=== PATIENT | female | born 1965 | race Hispanic/Latino ===

== ENCOUNTER 2020-09-04 16:03 | Inpatient (IN) | payer OTHER, SELFPAY ==
[~2020-09-04 16:03] MED LIST: Iopamidol-370 76% 500 ML 1 ML ONE
[2020-09-04 16:52] LABS: #Lymphocytes 0.5 thou/uL (1.20-3.40); #Monocytes 0.6 thou/uL (0.11-0.59); #Neutrophils 9.8 thou/uL (1.40-6.50); %Basophils 0.4 % (0.0-1.0); %Eosinophils 0.1 % (0.0-10.0); %Lymphocytes 4.3 % (21.0-51.0); %Monocytes 5.3 % (0.0-10.0); %Neutrophils 89.9 % (42.0-75.0); Mean Corpuscular HGB CONC 33.8 g/dL (32.0-36.0); Mean Corpuscular Hemoglobin 29.2 pg (27.0-31.0); Mean Corpuscular Volume 86.3 fL (78.0-98.0); Mean Platelet Volume 8.4 fL (7.4-10.4); Platelet Count 315 thou/uL (130-400); RBC Distribution Width 13.1 % (11.5-14.5); Red Blood Cell (RBC) Count 4.46 mill/uL (4.20-5.40); White Blood Cell (WBC) Count 10.9 thou/uL (4.8-10.8)
[2020-09-04 16:59] LABS: PTT 30.9 sec (22.9-36.1); Prothrombin Time 12.9 sec (12.0-14.7)
--- NOTE | 2020-09-04 17:04 | CT ---
CT ANGIO OF CHEST PERFORMED WITH INTRAVENOUS CONTRAST ENHANCEMENT WITH 3D RECONSTRUCTIONS: 09/04/20 HISTORY: Shortness of breath. COVID positive. Diffuse bilateral multifocal infiltrates compatible with COVID pneumonia. No pleural effusions. Thoracic aorta is normal in caliber. Motion artifact degrades detail particularly in the lower lobes for evaluation of pulmonary embolus. I see no central pulmonary embolus. The visualized liver parenchyma shows no focal abnormalities. Fatty change of the liver is present. IMPRESSION: 1. Multifocal pneumonia most compatible with COVID. 2. No signs of central pulmonary embolus. POS: JASPAL
--- NOTE | 2020-09-04 17:09 | RAD ---
PORTABLE CHEST: 09/04/20 HISTORY: Shortness of breath. Heart size is slightly enlarged. Diffuse bilateral lung infiltrates are compatible with the history o f COVID positive test. IMPRESSION: Diffuse bilateral infiltrates consistent with COVID pneumonia. POS: JASPAL
[2020-09-04 17:19] LABS: ALT (SGPT) 32 U/L (8-55); AST (SGOT) 33 U/L (5-34); Albumin 3.8 g/dL (3.5-5.0); Alkaline Phosphatase 94 U/L (40-110); Anion Gap 19 mmol/L (10-20); BUN (Urea Nitrogen) 15 mg/dL (9.8-20.1); Bilirubin, Total 0.5 mg/dL (0.2-1.2); Calc. Creatinine Clearance 0 mL/min (70-130); Calcium 9.1 mg/dL (7.8-10.44); Carbon Dioxide 22 mmol/L (22-29); Chloride 94 mmol/L (98-107); Globulin 3.8 g/dL (2.4-3.5); Glucose 305 mg/dL (70-105); Lipase 53 U/L (8-78); Potassium 3.3 mmol/L (3.5-5.1); Protein, Total 7.6 g/dL (6.0-8.3); Sodium 132 mmol/L (136-145)
[2020-09-04] MEDS ORDERED: Potassium Chloride 20 MEQ TAB ONE (17:46)
[2020-09-04] MEDS ORDERED: cefTRIAXone\\ROCEPHIN 1 GM VIAL ONE (18:21)
--- NOTE | 2020-09-04 18:26 | PDOC.HHP ---
Hospitalist HPI - History of Present Illness SOB History of Present Illness: Ms. Min Jean is a 55-year-old female with past medical history of hypertension, type 2 diabetes mellitus who presents to the emergency room for worsening shortness of breath. Patient reports that she tested positive for Covid day prior to admission and that her symptoms began a few days ago with cough, subjective fevers and chills. Patient endorses myalgias, malaise and worsening shortness of breath initially on exertion and now at rest. She denies any history of respiratory problems, denies chest pain, palpitations. She denies nausea vomiting diarrhea. Emergency room initial vital signs 126/63, 125, 20, 99.3, 92% on 3 L nasal cannula. Chest x-ray showed diffuse bilateral infiltrates consistent with Covid pneumonia. CTA PE protocol was negative for PE, but did show significant parenchymal changes consistent with Covid pneumonia. Lactic acid 4.3. CRP 11.79. White blood cell count 10.9. H/H 13.0/38.5. BUNs/CR 15/1.03. Sodium 132, potassium 3.3, glucose 305. Patient received azithromycin, ceftriaxone, dexamethasone, potassium and 1 L of normal saline in emergency room. Hospitalist ROS - Review of Systems Constitutional: reports: fever, chills, sweats, weakness, malaise Eyes: denies: pain, vision change, conjunctivae inflammation, eyelid inflammation, redness, other ENT: denies: ear pain, ear discharge, nose pain, nose discharge, nose congestion, mouth pain, mouth swelling, throat pain, throat swelling, other Respiratory: reports: cough, dry, shortness of breath, SOB with excertion. denies: hemoptysis, pleuritic pain, sputum, wheezing, other Cardiovascular: denies: chest pain, palpitations, orthopnea, paroxysmal noc. dyspnea, edema, light headedness, other Gastrointestinal: denies: nausea, vomiting, abdominal pain, diarrhea, constipation, melena, hematochezia, other Genitourinary: denies: dysuria, frequency, incontinence, hematuria, retention, other Musculoskeletal: denies: neck pain, shoulder pain, arm pain, back pain, hand pain, leg pain, foot pain, other Skin: denies: rash, lesions, geovanna, bruising, other Neurological: denies: weakness, numbness, incoordination, change in speech, confusion, seizures, other - Medication Medications: No medications include Metoprolol Telmisartan hydrochlorothiazide No known drug allergies Hospitalist History - Past Medical History Other Medical History: Past medical history includes Hypertension Type 2 diabetes mellitus, diet controlled - Past Surgical History Other Surgical History: Past surgical history includes in 2002 - Family History Other Family History: No pertinent family history - Social History Smoking Status: Never smoker Alcohol: reports: None Drugs: reports: none Living Situation: With Family Activity level: independent ambulation - Exam General Appearance: NAD, awake alert General - other findings: Comfortable on 3 L nasal cannula Eye: PERRL, anicteric sclera ENT: normocephalic atraumatic, no oropharyngeal lesions, moist mucosa Neck: supple, symmetric, no JVD, no thyromegaly, no lymphadenopathy, no carotid bruit Heart: RRR, no murmur, no gallops, no rubs, normal peripheral pulses Respiratory: no tachypnea Respiratory - other findings: Rales throughout Gastrointestinal: soft, non-tender, non-distended, normal bowel sounds, no palp able masses, no hepatomegaly, no splenomegaly, no bruit Extremities: no cyanosis, no clubbing, no edema Skin: normal turgor, no lesions, no rashes Neurological: cranial nerve grossly intact, normal sensation to touch, no weak ness, no focal deficits, no new deficit Musculoskeletal: normal tone, normal strength, no muscle wasting Psychiatric: normal affect, normal behavior, A&O x 3 Hospitalist Results - Labs Result Diagrams: 09/08/20 06:15 09/08/20 06:15 Lab results: WBC 10.9 thou/uL (4.8-10.8) H 09/04/20 16:42 Hgb 13.0 g/dL (12.0-16.0) 09/04/20 16:42 Hct 38.5 % (36.0-47.0) 09/04/20 16:42 MCV 86.3 fL (78.0-98.0) 09/04/20 16:42 Plt Count 315 thou/uL (130-400) 09/04/20 16:42 Neutrophils % 89.9 % (42.0-75.0) H 09/04/20 16:42 ESR Westergren 127 mm/hr (Less than 30) H 09/04/20 16:42 Sodium 132 mmol/L (136-145) L 09/04/20 16:42 Potassium 3.3 mmol/L (3.5-5.1) L 09/04/20 16:42 Chloride 94 mmol/L (98-107) L 09/04/20 16:42 Carbon Dioxide 22 mmol/L (22-29) 09/04/20 16:42 BUN 15 mg/dL (9.8-20.1) 09/04/20 16:42 Creatinine 1.03 mg/dL (0.6-1.1) 09/04/20 16:42 Glucose 305 mg/dL (70-105) H 09/04/20 16:42 Lactic Acid 4.3 mmol/L (0.5-2.2) H* 09/04/20 16:42 Calcium 9.1 mg/dL (7.8-10.44) 09/04/20 16:42 Total Bilirubin 0.5 mg/dL (0.2-1.2) 09/04/20 16:42 AST 33 U/L (5-34) 09/04/20 16:42 ALT 32 U/L (8-55) 09/04/20 16:42 Alkaline Phosphatase 94 U/L (40-110) 09/04/20 16:42 C-Reactive Protein 11.79 mg/dL (= or < 0.5) H 09/04/20 16:42 B-Natriuretic Peptide 18.9 pg/mL (0-100) 09/04/20 16:42 Serum Total Protein 7.6 g/dL (6.0-8.3) 09/04/20 16:42 Albumin 3.8 g/dL (3.5-5.0) 09/04/20 16:42 Lipase 53 U/L (8-78) 09/04/20 16:42 Hospitalist H&P A/P - Plan Plan: COVID-19 pneumonia 55-year-old female with past medical history of hypertension, diet-controlled type 2 diabetes mellitus presents with shortness of breath and tachycardia found to have COVID-19 pneumonia. CTA PE protocol negative. White blood cell count 10.9. Patient requiring 3 L nasal cannula to maintain O2 sat. Patient received azithromycin, ceftriaxone, dexamethasone in emergency room. We will closely monitor patient's respiratory status as patient has moderate to severe COVID-19 pneumonia. We will obtain baseline inflammatory markers and see if patient is candidate for remdesivir. Plan -Decadron, will see patient is candidate for remdesivir -Ceftriaxone, azithromycin -Supplemental oxygen -Tylenol, Robitussin -Vitamin C, zinc -We will obtain baseline inflammatory markers Acute hypoxic respiratory failure Patient with acute hypoxic respiratory failure secondary to moderate to severe COVID-19 pneumonia. Patient with new oxygen requirement now on 3 L of oxygen nasal cannula to maintain O2 sat. We will continue supplemental oxygen and closely monitor respiratory status. Treatment as above. Plan -Supplemental oxygen -Treatment as above -Closely monitor respiratory status Sepsis due to viral etiology Patient with elevated lactic acid of 4.3, tachypneic, tachycardic to 120s secondary to COVID-19 pneumonia. White blood cell count 10.9. Patient received 1 L of normal saline in emergency room as well as ceftriaxone and azithromycin. We will continue plan as above and continue to trend lactic acid, white blood cell count, fever curve. Plan Follow blood cultures Continue ceftriaxone, azithromycin Gentle IV fluids Trend lactic acid, WBC, fever curve Hypertension History of hypertension on metoprolol and combo losartan hydrochlorothiazide. Will hold in setting of sepsis and continue as needed. Type 2 diabetes mellitus Patient with history of type 2 diabetes mellitus, however she reports she is not taking any medication for this. Glucose on BMP significantly elevated to 305. Will check hemoglobin A1c and place patient on insulin sliding scale for now. DVT prophylaxisLovenox Full code Case discussed with attending physician, Dr. Marshall.
[2020-09-04] MEDS ORDERED: Acetaminophen 650 MG Suppository PR PRN (18:32)
[2020-09-04] MEDS ORDERED: Ondansetron ODT 4 MG TAB PO PRN (18:32)
[2020-09-04] MEDS ORDERED: Ondansetron PF 4 MG/2 ML Vial IVP PRN (18:32)
[2020-09-04] MEDS ORDERED: Dextrose 5% in Water 1,000 ML IV PRN (18:35)
[2020-09-04] MEDS ORDERED: Dextrose 50% Abboject 50 ML SYRINGE SLOW IVP PRN (18:35)
[2020-09-04 19:06] LABS: Hemoglobin A1c 6.5 % (4.0-6.0)
[2020-09-04 19:22] LABS: SARS-CoV-2 NAA Rapid Test DETECTED (NotDetected)
[2020-09-04 20:16] LABS: Lactic Acid 3.3 mmol/L (0.5-2.2)
[2020-09-04] MEDS ORDERED: REMDESIVIR (EUA) 200 MG in Sodium Chloride 0.9% 250 ML 210 ML IV SCH (22:00)
[2020-09-04 22:45] VITALS: BMI 46.5
[2020-09-05] MEDS: Guaifenesin DM 100-10/5 ML UDCUP PO PRN ×2 (01:45→20:00)
[2020-09-05 06:31] LABS: Lactic Acid 2.4 mmol/L (0.5-2.2)
[2020-09-05 06:32] LABS: Band 15 % (5-11); Eosinophils 1 % (0-10); Hemoglobin 11.4 g/dL (12.0-16.0); Lymphocytes 7 % (21-51); MDiff Complete? YES; Mean Corpuscular HGB CONC 32.2 g/dL (32.0-36.0); Mean Corpuscular Hemoglobin 27.6 pg (27.0-31.0); Mean Corpuscular Volume 85.8 fL (78.0-98.0); Mean Platelet Volume 7.9 fL (7.4-10.4); Monocytes 6 % (0-10); Neutrophil 71 % (42-75); Platelet Count 337 thou/uL (130-400); Platelet Morphology Comment Appears Adequate; RBC Distribution Width 13.3 % (11.5-14.5); Red Blood Cell (RBC) Count 4.11 mill/uL (4.20-5.40); White Blood Cell (WBC) Count 12.7 thou/uL (4.8-10.8)
[2020-09-05 06:35] LABS: Anion Gap 15 mmol/L (10-20); BUN (Urea Nitrogen) 12 mg/dL (9.8-20.1); Calc. Creatinine Clearance 175 mL/min (70-130); Calcium 8.1 mg/dL (7.8-10.44); Carbon Dioxide 21 mmol/L (22-29); Chloride 105 mmol/L (98-107); Glucose 194 mg/dL (70-105); Potassium 4.2 mmol/L (3.5-5.1); Sodium 137 mmol/L (136-145)
[2020-09-05 06:37] LABS: AST (SGOT) 25 U/L (5-34)
[2020-09-05 06:38] LABS: ALT (SGPT) 25 U/L (8-55)
[2020-09-05] MEDS: Dexamethasone 4 MG TAB PO SCH (07:53)
[2020-09-05] MEDS: Ascorbic Acid 500 mg Chewable Tablet PO SCH (07:55)
[2020-09-05] MEDS: Zinc Sulfate 220 MG CAP PO SCH (07:55)
[2020-09-05] MEDS: Enoxaparin Sodium 40 MG/0.4 ML SYRINGE SC SCH (07:56)
[2020-09-05] MEDS: HumaLOG 300 UNITS/3 ML VIAL SC PRN (13:05)
[2020-09-05] MEDS: Acetaminophen 325 MG TAB PO PRN (13:06)
--- NOTE | 2020-09-05 15:34 | PDOC.HOSPP ---
- Subjective Encounter Date: 09/05/20 Encounter Time: 15:25 Subjective: f/u for COVID PNA/hypoxic resp failure receiving Remdesivir/Dexamethasone/Rocephin/Zithromax/O2 @ 3L/min NC. - Objective Vital Signs & Weight: Vital Signs (12 hours) Temp Pulse Resp BP Pulse Ox 09/05/20 12:29 99.3 F 83 20 114/76 96 09/05/20 08:00 98.6 F 92 19 100/52 L 95 09/05/20 07:00 98.6 F 92 18 100/52 L 94 L 09/05/20 05:24 98.5 F 107 H 20 107/67 94 L Weight Weight 262 lb 9.129 oz Result Diagrams: 09/05/20 06:03 09/05/20 06:03 Additional Labs: Accuchecks 09/05/20 09/05/20 09/04/20 11:36 06:24 22:30 POC Glucose 215 H 186 H 205 H Microbiology 09/04/20 16:42 Venous blood - Right Arm Blood Culture - Preliminary Specimen has been received and culture in progress. No Growth to date. 09/04/20 16:42 Venous blood - Left Hand Blood Culture - Preliminary Specimen has been received and culture in progress. No Growth to date. Laboratory Tests 09/04/20 09/04/20 09/04/20 16:42 16:42 16:42 WBC Neutrophils % Neutrophils % (Manual) Band Neuts % (Manual) D-Dimer Hemoglobin A1c Lactic Acid 4.3 H* Ferritin C-Reactive Protein 11.79 H B-Natriuretic Peptide 18.9 Influenza A RNA INAAT Influenza B RNA INAAT SARS-CoV-2 Rap RNA(RT-PCR) 09/04/20 09/04/20 09/04/20 16:42 16:42 16:42 WBC 10.9 H Neutrophils % 89.9 H Neutrophils % (Manual) Band Neuts % (Manual) D-Dimer 0.43 Hemoglobin A1c Lactic Acid Ferritin 450.02 H C-Reactive Protein B-Natriuretic Peptide Influenza A RNA INAAT Influenza B RNA INAAT SARS-CoV-2 Rap RNA(RT-PCR) 09/04/20 09/04/20 09/04/20 16:42 17:57 19:50 WBC Neutrophils % Neutrophils % (Manual) Band Neuts % (Manual) D-Dimer Hemoglobin A1c 6.5 H Lactic Acid 3.3 H Ferritin C-Reactive Protein B-Natriuretic Peptide Influenza A RNA INAAT Not Detected Influenza B RNA INAAT Not Detected SARS-CoV-2 Rap RNA(RT-PCR) DETECTED A* 09/05/20 09/05/20 06:03 06:03 WBC Neutrophils % Neutrophils % (Manual) 71 Band Neuts % (Manual) 15 H D-Dimer Hemoglobin A1c Lactic Acid 2.4 H Ferritin C-Reactive Protein B-Natriuretic Peptide Influenza A RNA INAAT Influenza B RNA INAAT SARS-CoV-2 Rap RNA(RT-PCR) Radiology Reviewed by me: Yes (CTA chest - no PE, bilat infiltrates) Hospitalist ROS - Medication Medications: Active Medications Generic Name Dose Route Start Last Admin Trade Name Freq PRN Reason Stop Dose Admin Acetaminophen 650 mg 09/04/20 18:32 09/05/20 13:06 Acetaminophen 325 Mg Tab PO 650 mg Q4H PRN Administration Headache/Fever/Mild Pain (1-3) Ascorbic Acid 1,000 mg 09/05/20 09:00 09/05/20 07:55 Ascorbic Acid 500 Mg Chewable Tablet PO 1,000 mg DAILY IZA Administration Dexamethasone 6 mg 09/05/20 08:00 09/05/20 07:53 Dexamethasone 4 Mg Tab PO 6 mg QAM-WM IZA Administration Enoxaparin Sodium 40 mg 09/05/20 09:00 09/05/20 07:56 Enoxaparin Sodium 40 Mg/0.4 Ml Syringe SC 40 mg 0900 IZA Administration Guaifenesin/Dextromethorphan 15 ml 09/04/20 18:32 09/05/20 01:45 Guaifenesin Dm 100-10/5 Ml Udcup PO 15 ml Q4H PRN Administration Cough Insulin Human Lispro 0 units 09/04/20 18:35 09/05/20 13:05 Humalog 300 Units/3 Ml Vial SC 3 units .MILD SLIDING SCALE PRN Administration Mild Correctional Scale Zinc Sulfate 220 mg 09/05/20 09:00 09/05/20 07:55 Zinc Sulfate 220 Mg Cap PO 220 mg DAILY IZA Administration - Exam General Appearance: NAD, awake alert Eye: PERRL, anicteric sclera ENT: normocephalic atraumatic, no oropharyngeal lesions Neck: supple, symmetric, no JVD, no thyromegaly, no lymphadenopathy Heart: RRR, no gallops, no rubs, normal peripheral pulses Heart - other findings: S1, S2 Respiratory: rhonchi Respiratory - other findings: diminished in bases, scattered coarse sounds Gastrointestinal: soft, non-tender, non-distended, normal bowel sounds, no palpable masses Gastrointestinal - other findings: obese Extremities: no cyanosis, no clubbing, no edema Skin: normal turgor, no lesions Neurological: cranial nerve grossly intact, no new deficit Musculoskeletal: normal tone, generalized weakness Psychiatric: normal affect, A&O x 3 Hosp A/P (1) Pneumonia due to COVID-19 virus Code(s): U07.1 - COVID-19; J12.82 - PNEUMONIA DUE TO CORONAVIRUS DISEASE 2019 Status: Acute Plan: Continue Remdesivir/Dexamethasone/Rocephin/Zithromax/Vit C/Zinc/Lovenox (2) Acute respiratory failure with hypoxia Code(s): J96.01 - ACUTE RESPIRATORY FAILURE WITH HYPOXIA Status: Acute Plan: Continue O2 supplementation @ 3.5L/min NC (3) Hypokalemia Code(s): E87.6 - HYPOKALEMIA Status: Acute Plan: Resolved (4) Sepsis Code(s): A41.9 - SEPSIS, UNSPECIFIED ORGANISM Status: Acute Plan: Secondary to COVID PNA, continue mgmt as outlined in #1 (5) DM II (diabetes mellitus, type II), controlled Code(s): E11.9 - TYPE 2 DIABETES MELLITUS WITHOUT COMPLICATIONS Status: Chronic Plan: ISS, serial accuchecks, ADA, confirm home medication regimen - Plan plan discussed w/ family, continue antibiotics, hospital social worker, respiratory therapy, out of bed/ambulate, DVT proph w/SCDs Stable currently Continue Remdesivir protocol Continue Dexamethasone/Rocephin/Zithromax Continue Lovenox Assess for home O2 Isolation protocol AM lab: Ferritin, CRP, LFT's
[2020-09-05] MEDS: Azithromycin 500 MG in Sodium Chloride 0.9% 250 ML 250 ML IVPB SCH (16:16)
[2020-09-05] MEDS: cefTRIAXone\\ROCEPHIN 1 GM in Sodium Chloride 0.9% 100 ML IVPB SCH (18:35)
[2020-09-05] MEDS: REMDESIVIR (EUA) 100 MG in Sodium Chloride 0.9% 250 ML 230 ML IV SCH (20:46)
[2020-09-06] MEDS: Guaifenesin DM 100-10/5 ML UDCUP PO PRN ×2 (06:07→21:32)
[2020-09-06 06:31] LABS: Anion Gap 15 mmol/L (10-20); BUN (Urea Nitrogen) 18 mg/dL (9.8-20.1); Calc. Creatinine Clearance 168 mL/min (70-130); Calcium 8.3 mg/dL (7.8-10.44); Carbon Dioxide 24 mmol/L (22-29); Chloride 104 mmol/L (98-107); Glucose 160 mg/dL (70-105); Potassium 4.3 mmol/L (3.5-5.1); Sodium 139 mmol/L (136-145)
[2020-09-06 06:32] LABS: ALT (SGPT) 22 U/L (8-55); AST (SGOT) 23 U/L (5-34)
[2020-09-06 06:41] LABS: Band 4 % (5-11); Hemoglobin 11.9 g/dL (12.0-16.0); Lymphocytes 4 % (21-51); MDiff Complete? YES; Mean Corpuscular HGB CONC 30.8 g/dL (32.0-36.0); Mean Corpuscular Hemoglobin 26.6 pg (27.0-31.0); Mean Corpuscular Volume 86.3 fL (78.0-98.0); Mean Platelet Volume 7.7 fL (7.4-10.4); Monocytes 10 % (0-10); Neutrophil 82 % (42-75); Platelet Count 415 thou/uL (130-400); Platelet Morphology Comment Appears Increased; RBC Distribution Width 13.3 % (11.5-14.5); RBC Morphology Normal; Red Blood Cell (RBC) Count 4.48 mill/uL (4.20-5.40); White Blood Cell (WBC) Count 11.6 thou/uL (4.8-10.8)
[2020-09-06] MEDS: Dexamethasone 4 MG TAB PO SCH (08:26)
[2020-09-06] MEDS: Ascorbic Acid 500 mg Chewable Tablet PO SCH (08:26)
[2020-09-06] MEDS: Zinc Sulfate 220 MG CAP PO SCH (08:26)
[2020-09-06] MEDS: Enoxaparin Sodium 40 MG/0.4 ML SYRINGE SC SCH ×2 (08:27→21:30)
[2020-09-06] MEDS: Acetaminophen 325 MG TAB PO PRN ×2 (08:27→21:31)
[2020-09-06] MEDS ORDERED: PROVENTIL INHALER 6.7 G (200 INHALATIONS) INH PRN (14:45)
--- NOTE | 2020-09-06 14:46 | PDOC.HOSPP ---
- Subjective Encounter Date: 09/06/20 Encounter Time: 14:40 Subjective: f/u for COVID PNA/hypoxic resp failure currently on O2 @ 6L/min NC. Receiving Remdesivir/Dexamethasone/Rocephin/Zithromax/Lovenox/Vit C/Zinc. Nursing reports increased respiratory effort today. - Objective Vital Signs & Weight: Vital Signs (12 hours) Temp Pulse Resp BP BP Pulse Ox 09/06/20 13:05 98.8 F 79 23 H 102/66 93 L 09/06/20 08:00 98.4 F 78 26 H 105/71 95 09/06/20 06:37 94 L 09/06/20 04:42 97.9 F 71 20 102/66 95 Weight Weight 262 lb 9.129 oz Result Diagrams: 09/06/20 05:57 09/06/20 05:57 Additional Labs: Accuchecks 09/06/20 09/06/20 09/05/20 11:42 04:08 19:28 POC Glucose 184 H 149 H 236 H 09/05/20 09/05/20 17:11 15:28 POC Glucose 168 H 184 H Microbiology 09/04/20 16:42 Venous blood - Right Arm Blood Culture - Preliminary Specimen has been received and culture in progress. No Growth to date. 09/04/20 16:42 Venous blood - Right Arm Blood Culture - Preliminary NO GROWTH AT 48 HOURS 09/04/20 16:42 Venous blood - Left Hand Blood Culture - Preliminary Specimen has been received and culture in progress. No Growth to date. 09/04/20 16:42 Venous blood - Left Hand Blood Culture - Preliminary NO GROWTH AT 48 HOURS Laboratory Tests 09/04/20 09/04/20 09/04/20 16:42 16:42 16:42 WBC Neutrophils % Neutrophils % (Manual) Band Neuts % (Manual) D-Dimer Hemoglobin A1c Lactic Acid 4.3 H* Ferritin C-Reactive Protein 11.79 H B-Natriuretic Peptide 18.9 Influenza A RNA INAAT Influenza B RNA INAAT SARS-CoV-2 Rap RNA(RT-PCR) 09/04/20 09/04/20 09/04/20 16:42 16:42 16:42 WBC 10.9 H Neutrophils % 89.9 H Neutrophils % (Manual) Band Neuts % (Manual) D-Dimer 0.43 Hemoglobin A1c Lactic Acid Ferritin 450.02 H C-Reactive Protein B-Natriuretic Peptide Influenza A RNA INAAT Influenza B RNA INAAT SARS-CoV-2 Rap RNA(RT-PCR) 09/04/20 09/04/20 09/04/20 16:42 17:57 19:50 WBC Neutrophils % Neutrophils % (Manual) Band Neuts % (Manual) D-Dimer Hemoglobin A1c 6.5 H Lactic Acid 3.3 H Ferritin C-Reactive Protein B-Natriuretic Peptide Influenza A RNA INAAT Not Detected Influenza B RNA INAAT Not Detected SARS-CoV-2 Rap RNA(RT-PCR) DETECTED A* 09/05/20 09/05/20 09/06/20 06:03 06:03 05:57 WBC Neutrophils % Neutrophils % (Manual) 71 Band Neuts % (Manual) 15 H D-Dimer Hemoglobin A1c Lactic Acid 2.4 H Ferritin 297.52 H C-Reactive Protein B-Natriuretic Peptide Influenza A RNA INAAT Influenza B RNA INAAT SARS-CoV-2 Rap RNA(RT-PCR) 09/06/20 05:57 WBC Neutrophils % Neutrophils % (Manual) Band Neuts % (Manual) D-Dimer Hemoglobin A1c Lactic Acid Ferritin C-Reactive Protein 6.56 H B-Natriuretic Peptide Influenza A RNA INAAT Influenza B RNA INAAT SARS-CoV-2 Rap RNA(RT-PCR) Hospitalist ROS - Medication Medications: Active Medications Generic Name Dose Route Start Last Admin Trade Name Freq PRN Reason Stop Dose Admin Acetaminophen 650 mg 09/04/20 18:32 09/06/20 08:27 Acetaminophen 325 Mg Tab PO 650 mg Q4H PRN Administration Headache/Fever/Mild Pain (1-3) Ascorbic Acid 1,000 mg 09/05/20 09:00 09/06/20 08:26 Ascorbic Acid 500 Mg Chewable Tablet PO 1,000 mg DAILY IZA Administration Dexamethasone 6 mg 09/05/20 08:00 09/06/20 08:26 Dexamethasone 4 Mg Tab PO 6 mg QAM-WM IZA Administration Enoxaparin Sodium 40 mg 09/05/20 09:00 09/06/20 08:27 Enoxaparin Sodium 40 Mg/0.4 Ml Syringe SC 40 mg 0900 IZA Administration Guaifenesin/Dextromethorphan 15 ml 09/04/20 18:32 09/06/20 06:07 Guaifenesin Dm 100-10/5 Ml Udcup PO 15 ml Q4H PRN Administration Cough Remdesivir 100 mg/ Sodium 250 mls @ 250 mls/hr 09/05/20 22:00 09/05/20 20:46 Chloride IV 09/08/20 22:59 250 mls Q24HR@2200 IZA Administration Ceftriaxone Sodium 1 gm/ 100 mls @ 200 mls/hr 09/05/20 18:00 09/05/20 18:35 Sodium Chloride IVPB 100 mls Q24HR IZA Administration Azithromycin 500 mg/ Sodium 250 mls @ 250 mls/hr 09/05/20 17:00 09/05/20 16:16 Chloride IVPB 250 mls Q24HR IZA Administration Insulin Human Lispro 0 units 09/04/20 18:35 09/05/20 13:05 Humalog 300 Units/3 Ml Vial SC 3 units .MILD SLIDING SCALE PRN Administration Mild Correctional Scale Zinc Sulfate 220 mg 09/05/20 09:00 09/06/20 08:26 Zinc Sulfate 220 Mg Cap PO 220 mg DAILY IZA Administration - Exam General Appearance: awake alert General - other findings: responsive to questions Eye: PERRL, anicteric sclera ENT: normocephalic atraumatic, no oropharyngeal lesions Neck: supple, symmetric, no JVD, no thyromegaly, no lymphadenopathy Heart: RRR, no gallops, no rubs, normal peripheral pulses Heart - other findings: S1, S2 Respiratory: tachypneic Respiratory - other findings: diminished bilat, scattered rhonchi Gastrointestinal: soft, non-tender, non-distended, normal bowel sounds, no palpable masses Gastrointestinal - other findings: obese Extremities: no cyanosis, no clubbing, no edema Skin: normal turgor, no lesions Neurological: cranial nerve grossly intact, no new deficit Musculoskeletal: normal tone, normal strength, no muscle wasting Psychiatric: normal affect, A&O x 3 Hosp A/P (1) Pneumonia due to COVID-19 virus Code(s): U07.1 - COVID-19; J12.82 - PNEUMONIA DUE TO CORONAVIRUS DISEASE 2019 Status: Acute Plan: Continue Remdesivir/Rocephin/Zithromax/Lovenox/Dexamethasone/Vit C/Zinc (2) Acute respiratory failure with hypoxia Code(s): J96.01 - ACUTE RESPIRATORY FAILURE WITH HYPOXIA Status: Acute Plan: Continue O2 supplementation, titrate to clinical response, may consider high- flow (3) Hypokalemia Code(s): E87.6 - HYPOKALEMIA Status: Acute Plan: Resolved (4) Sepsis Code(s): A41.9 - SEPSIS, UNSPECIFIED ORGANISM Status: Acute (5) DM II (diabetes mellitus, type II), controlled Code(s): E11.9 - TYPE 2 DIABETES MELLITUS WITHOUT COMPLICATIONS Status: Chroni c - Plan plan discussed w/ family, continue antibiotics, social media coordinator, respiratory therapy, incentive spirometry, DVT proph w/SCDs Stable currently Continue Remdesivir protocol Continue Dexamethasone/Rocephin/Zithromax Change Lovenox 40mg sc BID Add Albuterol MDI 2 puffs QID PRN Assess for home O2 Isolation protocol AM lab: Ferritin, CRP, LFT's
[2020-09-06] MEDS: Azithromycin 500 MG in Sodium Chloride 0.9% 250 ML 250 ML IVPB SCH (20:00)
[2020-09-06] MEDS: cefTRIAXone\\ROCEPHIN 1 GM in Sodium Chloride 0.9% 100 ML IVPB SCH (21:29)
[2020-09-06] MEDS: REMDESIVIR (EUA) 100 MG in Sodium Chloride 0.9% 250 ML 230 ML IV SCH (21:53)
[2020-09-07] MEDS: Guaifenesin DM 100-10/5 ML UDCUP PO PRN ×3 (05:43→19:54)
[2020-09-07 06:49] LABS: Band 3 % (5-11); Hemoglobin 11.6 g/dL (12.0-16.0); Hypochromia SLIGHT = 6-15 cells (100X) (0-5/hpf); Lymphocytes 13 % (21-51); MDiff Complete? YES; Mean Corpuscular HGB CONC 32.1 g/dL (32.0-36.0); Mean Corpuscular Hemoglobin 27.8 pg (27.0-31.0); Mean Corpuscular Volume 86.5 fL (78.0-98.0); Mean Platelet Volume 7.7 fL (7.4-10.4); Monocytes 15 % (0-10); Neutrophil 69 % (42-75); Platelet Count 390 thou/uL (130-400); Platelet Morphology Comment Appears Adequate; RBC Distribution Width 13.5 % (11.5-14.5); Red Blood Cell (RBC) Count 4.17 mill/uL (4.20-5.40); White Blood Cell (WBC) Count 11.8 thou/uL (4.8-10.8)
[2020-09-07 06:54] LABS: Anion Gap 13 mmol/L (10-20); BUN (Urea Nitrogen) 19 mg/dL (9.8-20.1); Calc. Creatinine Clearance 183 mL/min (70-130); Calcium 7.9 mg/dL (7.8-10.44); Carbon Dioxide 24 mmol/L (22-29); Chloride 104 mmol/L (98-107); Glucose 147 mg/dL (70-105); Potassium 4.1 mmol/L (3.5-5.1); Sodium 137 mmol/L (136-145)
[2020-09-07 06:55] LABS: ALT (SGPT) 19 U/L (8-55); AST (SGOT) 17 U/L (5-34)
[2020-09-07] MEDS: Dexamethasone 4 MG TAB PO SCH (08:08)
[2020-09-07] MEDS: Ascorbic Acid 500 mg Chewable Tablet PO SCH (08:09)
[2020-09-07] MEDS: Zinc Sulfate 220 MG CAP PO SCH (08:09)
[2020-09-07] MEDS: Acetaminophen 325 MG TAB PO PRN ×2 (08:09→19:54)
[2020-09-07] MEDS: Enoxaparin Sodium 40 MG/0.4 ML SYRINGE SC SCH ×2 (10:29→19:54)
[2020-09-07] MEDS: Azithromycin 500 MG in Sodium Chloride 0.9% 250 ML 250 ML IVPB SCH (16:27)
[2020-09-07] MEDS: HumaLOG 300 UNITS/3 ML VIAL SC PRN (16:30)
--- NOTE | 2020-09-07 17:49 | PDOC.HOSPP ---
- Subjective Encounter Date: 09/07/20 Encounter Time: 17:30 Subjective: f/u for COVID PNA/hypoxic resp failure on O2 @ 6L/min NC. Feels SOB when ambulating but took a shower without assistance. - Objective Vital Signs & Weight: Vital Signs (12 hours) Temp Pulse Resp BP BP Pulse Ox 09/07/20 15:31 98.5 F 89 22 H 130/72 93 L 09/07/20 11:09 97.0 F L 75 22 H 133/77 96 09/07/20 08:00 94 L 09/07/20 07:26 97.6 F 74 20 126/71 94 L 09/07/20 06:00 97.5 F L 77 20 127/63 96 Weight Weight 262 lb 9.129 oz I&O: 09/06/20 09/07/20 09/08/20 06:59 06:59 06:59 Intake Total 500 Balance 500 Result Diagrams: 09/07/20 05:40 09/07/20 05:40 Additional Labs: Accuchecks 09/07/20 09/07/20 09/07/20 15:35 11:07 04:46 POC Glucose 214 H 145 H 141 H 09/06/20 19:36 POC Glucose 163 H Microbiology 09/04/20 16:42 Venous blood - Right Arm Blood Culture - Preliminary Specimen has been received and culture in progress. No Growth to date. 09/04/20 16:42 Venous blood - Right Arm Blood Culture - Preliminary NO GROWTH AT 48 HOURS 09/04/20 16:42 Venous blood - Left Hand Blood Culture - Preliminary Specimen has been received and culture in progress. No Growth to date. 09/04/20 16:42 Venous blood - Left Hand Blood Culture - Preliminary NO GROWTH AT 48 HOURS Laboratory Tests 09/04/20 09/04/20 09/04/20 16:42 16:42 16:42 WBC Neutrophils % Neutrophils % (Manual) Band Neuts % (Manual) D-Dimer Hemoglobin A1c Lactic Acid 4.3 H* Ferritin C-Reactive Protein 11.79 H B-Natriuretic Peptide 18.9 Influenza A RNA INAAT Influenza B RNA INAAT SARS-CoV-2 Rap RNA(RT-PCR) 09/04/20 09/04/20 09/04/20 16:42 16:42 16:42 WBC 10.9 H Neutrophils % 89.9 H Neutrophils % (Manual) Band Neuts % (Manual) D-Dimer 0.43 Hemoglobin A1c Lactic Acid Ferritin 450.02 H C-Reactive Protein B-Natriuretic Peptide Influenza A RNA INAAT Influenza B RNA INAAT SARS-CoV-2 Rap RNA(RT-PCR) 09/04/20 09/04/20 09/04/20 16:42 17:57 19:50 WBC Neutrophils % Neutrophils % (Manual) Band Neuts % (Manual) D-Dimer Hemoglobin A1c 6.5 H Lactic Acid 3.3 H Ferritin C-Reactive Protein B-Natriuretic Peptide Influenza A RNA INAAT Not Detected Influenza B RNA INAAT Not Detected SARS-CoV-2 Rap RNA(RT-PCR) DETECTED A* 09/05/20 09/05/20 09/06/20 06:03 06:03 05:57 WBC Neutrophils % Neutrophils % (Manual) 71 Band Neuts % (Manual) 15 H D-Dimer Hemoglobin A1c Lactic Acid 2.4 H Ferritin 297.52 H C-Reactive Protein B-Natriuretic Peptide Influenza A RNA INAAT Influenza B RNA INAAT SARS-CoV-2 Rap RNA(RT-PCR) 09/06/20 05:57 WBC Neutrophils % Neutrophils % (Manual) Band Neuts % (Manual) D-Dimer Hemoglobin A1c Lactic Acid Ferritin C-Reactive Protein 6.56 H B-Natriuretic Peptide Influenza A RNA INAAT Influenza B RNA INAAT SARS-CoV-2 Rap RNA(RT-PCR) Hospitalist ROS - Medication Medications: Active Medications Generic Name Dose Route Start Last Admin Trade Name Freq PRN Reason Stop Dose Admin Acetaminophen 650 mg 09/04/20 18:32 09/07/20 08:09 Acetaminophen 325 Mg Tab PO 650 mg Q4H PRN Administration Headache/Fever/Mild Pain (1-3) Ascorbic Acid 1,000 mg 09/05/20 09:00 09/07/20 08:09 Ascorbic Acid 500 Mg Chewable Tablet PO 1,000 mg DAILY IZA Administration Dexamethasone 6 mg 09/05/20 08:00 09/07/20 08:08 Dexamethasone 4 Mg Tab PO 6 mg QAM-WM IZA Administration Enoxaparin Sodium 40 mg 09/06/20 21:00 09/07/20 10:29 Enoxaparin Sodium 40 Mg/0.4 Ml Syringe SC 40 mg 0900,2100 IZA Administration Guaifenesin/Dextromethorphan 15 ml 09/04/20 18:32 09/07/20 16:31 Guaifenesin Dm 100-10/5 Ml Udcup PO 15 ml Q4H PRN Administration Cough Remdesivir 100 mg/ Sodium 250 mls @ 250 mls/hr 09/05/20 22:00 09/06/20 21:53 Chloride IV 09/08/20 22:59 250 mls Q24HR@2200 IZA Administration Ceftriaxone Sodium 1 gm/ 100 mls @ 200 mls/hr 09/05/20 18:00 09/06/20 21:29 Sodium Chloride IVPB 100 mls Q24HR IZA Administration Azithromycin 500 mg/ Sodium 250 mls @ 250 mls/hr 09/05/20 17:00 09/07/20 16:27 Chloride IVPB 250 mls Q24HR IZA Administration Insulin Human Lispro 0 units 09/04/20 18:35 09/07/20 16:30 Humalog 300 Units/3 Ml Vial SC 3 units .MILD SLIDING SCALE PRN Administration Mild Correctional Scale Zinc Sulfate 220 mg 09/05/20 09:00 09/07/20 08:09 Zinc Sulfate 220 Mg Cap PO 220 mg DAILY IZA Administration - Exam General Appearance: NAD, awake alert Eye: PERRL, anicteric sclera ENT: normocephalic atraumatic, no oropharyngeal lesions Neck: supple, symmetric, no JVD, no thyromegaly, no lymphadenopathy Heart: RRR, no gallops, no rubs, normal peripheral pulses Heart - other findings: S1, S2 Respiratory: no wheezes, tachypneic Respiratory - other findings: diminished in bases bilat, scattered coarse sounds Gastrointestinal: soft, non-tender, non-distended, normal bowel sounds, no palpable masses Gastrointestinal - other findings: obese Extremities: no cyanosis, no clubbing, no edema Skin: normal turgor, no lesions Neurological: cranial nerve grossly intact, no new deficit Musculoskeletal: normal tone, normal strength, no muscle wasting Psychiatric: normal affect, A&O x 3 Hosp A/P (1) Pneumonia due to COVID-19 virus Code(s): U07.1 - COVID-19; J12.82 - PNEUMONIA DUE TO CORONAVIRUS DISEASE 2019 Status: Acute Plan: Continue Dexamethasone/Lovenox/Zithromax/Rocephin/Lovenox/Vit C/Zinc/Remdesivir (2) Acute respiratory failure with hypoxia Code(s): J96.01 - ACUTE RESPIRATORY FAILURE WITH HYPOXIA Status: Acute Plan: Continue O2 supplementation, wean as clinically indicated (3) Hypokalemia Code(s): E87.6 - HYPOKALEMIA Status: Acute Plan: Resolved (4) Sepsis Code(s): A41.9 - SEPSIS, UNSPECIFIED ORGANISM Status: Acute Plan: Resolved (5) DM II (diabetes mellitus, type II), controlled Code(s): E11.9 - TYPE 2 DIABETES MELLITUS WITHOUT COMPLICATIONS Status: Chronic - Plan plan discussed w/ family, continue antibiotics, director social, respiratory therapy, incentive spirometry, out of bed/ambulate, DVT proph w/SCDs Stable currently Continue Remdesivir protocol Continue Dexamethasone/Rocephin/Zithromax Continue Lovenox 40mg sc BID Add Albuterol MDI 2 puffs QID PRN Assess for home O2 Isolation protocol AM lab: Ferritin, CRP, LFT's
[2020-09-07] MEDS: cefTRIAXone\\ROCEPHIN 1 GM in Sodium Chloride 0.9% 100 ML IVPB SCH (17:50)
[2020-09-07] MEDS: REMDESIVIR (EUA) 100 MG in Sodium Chloride 0.9% 250 ML 230 ML IV SCH (22:37)
[2020-09-08] MEDS: Guaifenesin DM 100-10/5 ML UDCUP PO PRN ×3 (06:01→20:38)
[2020-09-08 06:48] LABS: Hemoglobin 12.5 g/dL (12.0-16.0); Mean Corpuscular Volume 87.5 fL (78.0-98.0); Mean Platelet Volume 7.4 fL (7.4-10.4); Platelet Count 469 thou/uL (130-400); RBC Distribution Width 13.4 % (11.5-14.5); Red Blood Cell (RBC) Count 4.48 mill/uL (4.20-5.40); White Blood Cell (WBC) Count 13.1 thou/uL (4.8-10.8)
[2020-09-08 06:54] LABS: Anion Gap 16 mmol/L (10-20); BUN (Urea Nitrogen) 17 mg/dL (9.8-20.1); Calc. Creatinine Clearance 173 mL/min (70-130); Carbon Dioxide 23 mmol/L (22-29); Chloride 104 mmol/L (98-107); Glucose 154 mg/dL (70-105); Potassium 3.7 mmol/L (3.5-5.1); Sodium 139 mmol/L (136-145)
[2020-09-08 06:56] LABS: ALT (SGPT) 18 U/L (8-55); AST (SGOT) 16 U/L (5-34)
[2020-09-08] MEDS: Ascorbic Acid 500 mg Chewable Tablet PO SCH (08:03)
[2020-09-08] MEDS: Dexamethasone 4 MG TAB PO SCH (08:03)
[2020-09-08] MEDS: Enoxaparin Sodium 40 MG/0.4 ML SYRINGE SC SCH ×2 (08:03→20:38)
[2020-09-08] MEDS: Acetaminophen 325 MG TAB PO PRN (08:03)
[2020-09-08] MEDS: Zinc Sulfate 220 MG CAP PO SCH (08:03)
[2020-09-08 08:36] LABS: Band 1 % (5-11); Lymphocytes 8 % (21-51); MDiff Complete? YES; Monocytes 10 % (0-10); Neutrophil 79 % (42-75); Platelet Morphology Comment Appears Increased; Polychromasia SLIGHT = 2-3 cells (100X) (0-2/hpf); Reactive Lymphocytes 2 % (0-10)
[2020-09-08] MEDS: Azithromycin 500 MG in Sodium Chloride 0.9% 250 ML 250 ML IVPB SCH (16:20)
[2020-09-08] MEDS: cefTRIAXone\\ROCEPHIN 1 GM in Sodium Chloride 0.9% 100 ML IVPB SCH (16:21)
[2020-09-08] MEDS: HumaLOG 300 UNITS/3 ML VIAL SC PRN (16:22)
--- NOTE | 2020-09-08 17:04 | PDOC.HOSPP ---
- Subjective Encounter Date: 09/08/20 Encounter Time: 16:40 Subjective: f/u for COVID PNA/hypoxic resp failure on 5L/min NC. Still fatigued, coughing. - Objective Vital Signs & Weight: Vital Signs (12 hours) Temp Pulse Resp BP BP Pulse Ox 09/08/20 15:40 98.1 F 88 20 120/70 97 09/08/20 11:11 98.6 F 89 24 H 133/70 95 09/08/20 08:00 97 09/08/20 07:09 97 09/08/20 07:08 98.0 F 73 22 H 123/58 L 97 Weight Weight 262 lb 9.129 oz I&O: 09/07/20 09/08/20 09/09/20 06:59 06:59 06:59 Intake Total 500 760 Balance 500 760 Result Diagrams: 09/08/20 06:15 09/08/20 06:15 Additional Labs: Accuchecks 09/08/20 09/08/20 09/08/20 15:41 11:12 05:26 POC Glucose 196 H 127 H 138 H 09/07/20 19:27 POC Glucose 162 H Microbiology 09/04/20 16:42 Venous blood - Right Arm Blood Culture - Preliminary Specimen has been received and culture in progress. No Growth to date. 09/04/20 16:42 Venous blood - Right Arm Blood Culture - Preliminary NO GROWTH AT 48 HOURS 09/04/20 16:42 Venous blood - Left Hand Blood Culture - Preliminary Specimen has been received and culture in progres s. No Growth to date. 09/04/20 16:42 Venous blood - Left Hand Blood Culture - Preliminary NO GROWTH AT 48 HOURS Laboratory Tests 09/04/20 09/04/20 09/04/20 16:42 16:42 16:42 WBC Neutrophils % Neutrophils % (Manual) Band Neuts % (Manual) D-Dimer Hemoglobin A1c Lactic Acid 4.3 H* Ferritin C-Reactive Protein 11.79 H B-Natriuretic Peptide 18.9 Influenza A RNA INAAT Influenza B RNA INAAT SARS-CoV-2 Rap RNA(RT-PCR) 09/04/20 09/04/20 09/04/20 16:42 16:42 16:42 WBC 10.9 H Neutrophils % 89.9 H Neutrophils % (Manual) Band Neuts % (Manual) D-Dimer 0.43 Hemoglobin A1c Lactic Acid Ferritin 450.02 H C-Reactive Protein B-Natriuretic Peptide Influenza A RNA INAAT Influenza B RNA INAAT SARS-CoV-2 Rap RNA(RT-PCR) 09/04/20 09/04/20 09/04/20 16:42 17:57 19:50 WBC Neutrophils % Neutrophils % (Manual) Band Neuts % (Manual) D-Dimer Hemoglobin A1c 6.5 H Lactic Acid 3.3 H Ferritin C-Reactive Protein B-Natriuretic Peptide Influenza A RNA INAAT Not Detected Influenza B RNA INAAT Not Detected SARS-CoV-2 Rap RNA(RT-PCR) DETECTED A* 09/05/20 09/05/20 09/06/20 06:03 06:03 05:57 WBC Neutrophils % Neutrophils % (Manual) 71 Band Neuts % (Manual) 15 H D-Dimer Hemoglobin A1c Lactic Acid 2.4 H Ferritin 297.52 H C-Reactive Protein B-Natriuretic Peptide Influenza A RNA INAAT Influenza B RNA INAAT SARS-CoV-2 Rap RNA(RT-PCR) 09/06/20 09/08/20 05:57 06:15 WBC Neutrophils % Neutrophils % (Manual) Band Neuts % (Manual) D-Dimer Hemoglobin A1c Lactic Acid Ferritin 200.16 C-Reactive Protein 6.56 H B-Natriuretic Peptide Influenza A RNA INAAT Influenza B RNA INAAT SARS-CoV-2 Rap RNA(RT-PCR) Hospitalist ROS - Medication Medications: Active Medications Generic Name Dose Route Start Last Admin Trade Name Freq PRN Reason Stop Dose Admin Acetaminophen 650 mg 09/04/20 18:32 09/08/20 08:03 Acetaminophen 325 Mg Tab PO 650 mg Q4H PRN Administration Headache/Fever/Mild Pain (1-3) Ascorbic Acid 1,000 mg 09/05/20 09:00 09/08/20 08:03 Ascorbic Acid 500 Mg Chewable Tablet PO 1,000 mg DAILY IZA Administration Dexamethasone 6 mg 09/05/20 08:00 09/08/20 08:03 Dexamethasone 4 Mg Tab PO 6 mg QAM-WM IZA Administration Enoxaparin Sodium 40 mg 09/06/20 21:00 09/08/20 08:03 Enoxaparin Sodium 40 Mg/0.4 Ml Syringe SC 40 mg 0900,2100 IZA Administration Guaifenesin/Dextromethorphan 15 ml 09/04/20 18:32 09/08/20 16:49 Guaifenesin Dm 100-10/5 Ml Udcup PO 15 ml Q4H PRN Administration Cough Remdesivir 100 mg/ Sodium 250 mls @ 250 mls/hr 09/05/20 22:00 09/07/20 22:37 Chloride IV 09/08/20 22:59 250 mls Q24HR@2200 IZA Administration Ceftriaxone Sodium 1 gm/ 100 mls @ 200 mls/hr 09/05/20 18:00 09/08/20 16:21 Sodium Chloride IVPB 100 mls Q24HR IZA Administration Azithromycin 500 mg/ Sodium 250 mls @ 250 mls/hr 09/05/20 17:00 09/08/20 16:20 Chloride IVPB 250 mls Q24HR IZA Administration Insulin Human Lispro 0 units 09/04/20 18:35 09/08/20 16:22 Humalog 300 Units/3 Ml Vial SC 2 units .MILD SLIDING SCALE PRN Administration Mild Correctional Scale Zinc Sulfate 220 mg 09/05/20 09:00 09/08/20 08:03 Zinc Sulfate 220 Mg Cap PO 220 mg DAILY IZA Administration - Exam General Appearance: NAD, awake alert Eye: PERRL, anicteric sclera ENT: normocephalic atraumatic, no oropharyngeal lesions Neck: supple, symmetric, no JVD, no thyromegaly, no lymphadenopathy Heart: RRR, no gallops, no rubs, normal peripheral pulses Heart - other findings: S1, S2 Respiratory: tachypneic Respiratory - other findings: diminished in bases, coarse sounds bilat Gastrointestinal: soft, non-tender, non-distended, normal bowel sounds, no palpable masses Gastrointestinal - other findings: obese Extremities: no cyanosis, no clubbing, no edema Skin: normal turgor, no lesions Neurological: cranial nerve grossly intact, no new deficit Musculoskeletal: normal tone, normal strength, no muscle wasting Psychiatric: normal affect, A&O x 3 Hosp A/P (1) Pneumonia due to COVID-19 virus Code(s): U07.1 - COVID-19; J12.82 - PNEUMONIA DUE TO CORONAVIRUS DISEASE 2019 Status: Acute Plan: Continue Remdesivir/Dexamethasone/Rocephin/Zithromax/Albuterol (2) Acute respiratory failure with hypoxia Code(s): J96.01 - ACUTE RESPIRATORY FAILURE WITH HYPOXIA Status: Acute Plan: Continue O2 supplementation, wean as clinically indicated (3) Hypokalemia Code(s): E87.6 - HYPOKALEMIA Status: Acute (4) Sepsis Code(s): A41.9 - SEPSIS, UNSPECIFIED ORGANISM Status: Acute (5) DM II (diabetes mellitus, type II), controlled Code(s): E11.9 - TYPE 2 DIABETES MELLITUS WITHOUT COMPLICATIONS Status: Chronic - Plan plan discussed w/ family, continue antibiotics, protective services social worker, respiratory therapy, incentive spirometry, out of bed/ambulate, DVT proph w/SCDs Stable currently Continue Remdesivir protocol Continue Dexamethasone/Rocephin/Zithromax Continue Lovenox 40mg sc BID Add Albuterol MDI 2 puffs Q4h Add Mucinex 600mg BID Assess for home O2 Isolation protocol AM lab: Ferritin, CRP, LFT's
[2020-09-08] MEDS: PROVENTIL INHALER 6.7 G (200 INHALATIONS) INH SCH ×2 (17:42→22:39)
[2020-09-08] MEDS: guaiFENesin ER 600 MG TAB PO SCH (17:42)
[2020-09-08] MEDS: REMDESIVIR (EUA) 100 MG in Sodium Chloride 0.9% 250 ML 230 ML IV SCH (22:38)
[2020-09-09] MEDS: PROVENTIL INHALER 6.7 G (200 INHALATIONS) INH SCH ×6 (02:30→22:48)
[2020-09-09] MEDS: guaiFENesin ER 600 MG TAB PO SCH ×2 (05:14→17:46)
[2020-09-09] MEDS: Dexamethasone 4 MG TAB PO SCH (09:03)
[2020-09-09] MEDS: Ascorbic Acid 500 mg Chewable Tablet PO SCH (09:03)
[2020-09-09] MEDS: Zinc Sulfate 220 MG CAP PO SCH (09:03)
[2020-09-09] MEDS: Enoxaparin Sodium 40 MG/0.4 ML SYRINGE SC SCH ×2 (09:03→20:52)
[2020-09-09] MEDS: Azithromycin 500 MG in Sodium Chloride 0.9% 250 ML 250 ML IVPB SCH (16:16)
[2020-09-09] MEDS: cefTRIAXone\\ROCEPHIN 1 GM in Sodium Chloride 0.9% 100 ML IVPB SCH (16:17)
[2020-09-09] MEDS: Guaifenesin DM 100-10/5 ML UDCUP PO PRN (16:27)
--- NOTE | 2020-09-09 16:30 | PDOC.HOSPP ---
- Subjective Encounter Date: 09/09/20 Encounter Time: 16:20 Subjective: f/u for COVID PNA/resp failure on O2 @ 5L/min NC. Feels better overall, productive phlegm. No fever or chills. - Objective Vital Signs & Weight: Vital Signs (12 hours) Temp Pulse Resp BP Pulse Ox 09/09/20 08:00 94 L 09/09/20 06:56 98.8 F 73 19 117/56 L 94 L Weight Weight 262 lb 9.129 oz I&O: 09/08/20 09/09/20 09/10/20 06:59 06:59 06:59 Intake Total 760 760 Balance 760 760 Result Diagrams: 09/08/20 06:15 09/08/20 06:15 Additional Labs: Accuchecks 09/09/20 09/09/20 04:25 00:09 POC Glucose 142 H 152 H Microbiology 09/04/20 16:42 Venous blood - Right Arm Blood Culture - Preliminary Specimen has been received and culture in progress. No Growth to date. 09/04/20 16:42 Venous blood - Right Arm Blood Culture - Preliminary NO GROWTH AT 48 HOURS 09/04/20 16:42 Venous blood - Left Hand Blood Culture - Preliminary Specimen has been received and culture in progress. No Growth to date. 09/04/20 16:42 Venous blood - Left Hand Blood Culture - Preliminary NO GROWTH AT 48 HOURS Laboratory Tests 09/04/20 09/04/20 09/04/20 16:42 16:42 16:42 WBC Neutrophils % Neutrophils % (Manual) Band Neuts % (Manual) D-Dimer Hemoglobin A1c Lactic Acid 4.3 H* Ferritin C-Reactive Protein 11.79 H B-Natriuretic Peptide 18.9 Influenza A RNA INAAT Influenza B RNA INAAT SARS-CoV-2 Rap RNA(RT-PCR) 09/04/20 09/04/20 09/04/20 16:42 16:42 16:42 WBC 10.9 H Neutrophils % 89.9 H Neutrophils % (Manual) Band Neuts % (Manual) D-Dimer 0.43 Hemoglobin A1c Lactic Acid Ferritin 450.02 H C-Reactive Protein B-Natriuretic Peptide Influenza A RNA INAAT Influenza B RNA INAAT SARS-CoV-2 Rap RNA(RT-PCR) 09/04/20 09/04/20 09/04/20 16:42 17:57 19:50 WBC Neutrophils % Neutrophils % (Manual) Band Neuts % (Manual) D-Dimer Hemoglobin A1c 6.5 H Lactic Acid 3.3 H Ferritin C-Reactive Protein B-Natriuretic Peptide Influenza A RNA INAAT Not Detected Influenza B RNA INAAT Not Detected SARS-CoV-2 Rap RNA(RT-PCR) DETECTED A* 09/05/20 09/05/20 09/06/20 06:03 06:03 05:57 WBC Neutrophils % Neutrophils % (Manual) 71 Band Neuts % (Manual) 15 H D-Dimer Hemoglobin A1c Lactic Acid 2.4 H Ferritin 297.52 H C-Reactive Protein B-Natriuretic Peptide Influenza A RNA INAAT Influenza B RNA INAAT SARS-CoV-2 Rap RNA(RT-PCR) 09/06/20 09/08/20 05:57 06:15 WBC Neutrophils % Neutrophils % (Manual) Band Neuts % (Manual) D-Dimer Hemoglobin A1c Lactic Acid Ferritin 200.16 C-Reactive Protein 6.56 H B-Natriuretic Peptide Influenza A RNA INAAT Influenza B RNA INAAT SARS-CoV-2 Rap RNA(RT-PCR) Hospitalist ROS - Medication Medications: Active Medications Generic Name Dose Route Start Last Admin Trade Name Freq PRN Reason Stop Dose Admin Acetaminophen 650 mg 09/04/20 18:32 09/08/20 08:03 Acetaminophen 325 Mg Tab PO 650 mg Q4H PRN Administration Headache/Fever/Mild Pain (1-3) Albuterol Sulfate 2 puff 09/08/20 18:30 09/09/20 15:02 Proventil Inhaler 6.7 G (200 Inhalations) INH Not Given [id number] IZA Ascorbic Acid 1,000 mg 09/05/20 09:00 09/09/20 09:03 Ascorbic Acid 500 Mg Chewable Tablet PO 1,000 mg DAILY IZA Administration Dexamethasone 6 mg 09/05/20 08:00 09/09/20 09:03 Dexamethasone 4 Mg Tab PO 6 mg QAM-WM IZA Administration Enoxaparin Sodium 40 mg 09/06/20 21:00 09/09/20 09:03 Enoxaparin Sodium 40 Mg/0.4 Ml Syringe SC 40 mg 0900,2100 IZA Administration Guaifenesin 600 mg 09/08/20 18:00 09/09/20 05:14 Guaifenesin Er 600 Mg Tab PO 600 mg 0600,1800 IZA Administration Guaifenesin/Dextromethorphan 15 ml 09/04/20 18:32 09/08/20 20:38 Guaifenesin Dm 100-10/5 Ml Udcup PO 15 ml Q4H PRN Administration Cough Ceftriaxone Sodium 1 gm/ 100 mls @ 200 mls/hr 09/05/20 18:00 09/09/20 16:17 Sodium Chloride IVPB 100 mls Q24HR IZA Administration Azithromycin 500 mg/ Sodium 250 mls @ 250 mls/hr 09/05/20 17:00 09/09/20 1 6:16 Chloride IVPB 250 mls Q24HR IZA Administration Insulin Human Lispro 0 units 09/04/20 18:35 09/08/20 16:22 Humalog 300 Units/3 Ml Vial SC 2 units .MILD SLIDING SCALE PRN Administration Mild Correctional Scale Sodium Chloride 10 ml 09/04/20 18:32 09/09/20 09:04 Flush - Normal Saline 10 Ml Syringe IVF 10 ml PRN PRN Administration Saline Flush Zinc Sulfate 220 mg 09/05/20 09:00 09/09/20 09:03 Zinc Sulfate 220 Mg Cap PO 220 mg DAILY IZA Administration - Exam General Appearance: NAD, awake alert Eye: PERRL, anicteric sclera ENT: normocephalic atraumatic, no oropharyngeal lesions Neck: supple, symmetric, no JVD, no thyromegaly, no lymphadenopathy Heart: RRR, no gallops, no rubs, normal peripheral pulses Heart - other findings: S1, S2 Respiratory: no wheezes, tachypneic Respiratory - other findings: scattered rhonchi Gastrointestinal: soft, non-tender, non-distended, normal bowel sounds, no palpable masses Extremities: no cyanosis, no clubbing, no edema Skin: normal turgor, no lesions Neurological: cranial nerve grossly intact, no new deficit Musculoskeletal: normal tone, normal strength, no muscle wasting Psychiatric: normal affect, A&O x 3 Hosp A/P (1) Pneumonia due to COVID-19 virus Code(s): U07.1 - COVID-19; J12.82 - PNEUMONIA DUE TO CORONAVIRUS DISEASE 2019 Status: Acute Plan: Continue Rocephin/Zithromax/Dexamethasone/Lovenox/Vit C/Zinc/O2 (2) Acute respiratory failure with hypoxia Code(s): J96.01 - ACUTE RESPIRATORY FAILURE WITH HYPOXIA Status: Acute Plan: Continue O2 supplementation, wean as clinically indicated (3) Hypokalemia Code(s): E87.6 - HYPOKALEMIA Status: Acute (4) Sepsis Code(s): A41.9 - SEPSIS, UNSPECIFIED ORGANISM Status: Acute (5) DM II (diabetes mellitus, type II), controlled Code(s): E11.9 - TYPE 2 DIABETES MELLITUS WITHOUT COMPLICATIONS Status: Chronic - Plan plan discussed w/ family, continue antibiotics, group social worker, respiratory therapy, incentive spirometry, out of bed/ambulate, DVT proph w/SCDs Stable currently Completed Remdesivir Continue Dexamethasone/Rocephin/Zithromax Continue Lovenox 40mg sc BID Add Albuterol MDI 2 puffs Q4h Add Mucinex 600mg BID Assess for home O2 Isolation protocol AM lab: Ferritin, CRP, LFT's Likely home in 24-48h
[2020-09-09] MEDS: HumaLOG 300 UNITS/3 ML VIAL SC PRN (20:53)
[2020-09-09] MEDS ORDERED: Prevnar 13-Val Conj/PF 0.5 ML SYRINGE IM ONE (21:00)
[2020-09-09] MEDS ORDERED: FLU VACC QS2020-21(6MOS UP)/PF 60 MCG/0.5 ML SYRINGE IM ONE (21:00)
[2020-09-10] MEDS: PROVENTIL INHALER 6.7 G (200 INHALATIONS) INH SCH ×6 (03:22→22:02)
[2020-09-10] MEDS: guaiFENesin ER 600 MG TAB PO SCH ×2 (05:14→16:25)
[2020-09-10] MEDS: Enoxaparin Sodium 40 MG/0.4 ML SYRINGE SC SCH ×2 (08:10→21:05)
[2020-09-10] MEDS: Ascorbic Acid 500 mg Chewable Tablet PO SCH (08:10)
[2020-09-10] MEDS: Zinc Sulfate 220 MG CAP PO SCH (08:10)
[2020-09-10] MEDS: Dexamethasone 4 MG TAB PO SCH (08:10)
[2020-09-10] MEDS: cefTRIAXone\\ROCEPHIN 1 GM in Sodium Chloride 0.9% 100 ML IVPB SCH (16:24)
[2020-09-10] MEDS: Azithromycin 500 MG in Sodium Chloride 0.9% 250 ML 250 ML IVPB SCH (16:24)
[2020-09-10] MEDS: HumaLOG 300 UNITS/3 ML VIAL SC PRN ×2 (16:25→21:05)
--- NOTE | 2020-09-10 18:44 | PDOC.HOSPP ---
- Subjective Encounter Date: 09/10/20 Encounter Time: 18:20 Subjective: f/u for COVID PNA/hypoxic resp failure receiving O2 @ 2.5L/min NC. Feels much better today. - Objective Vital Signs & Weight: Vital Signs (12 hours) Temp Pulse Resp BP Pulse Ox 09/10/20 08:00 98.6 F 73 20 111/55 L 95 Weight Weight 262 lb 9.129 oz I&O: 09/09/20 09/10/20 09/11/20 06:59 06:59 06:59 Intake Total 760 Balance 760 Result Diagrams: 09/08/20 06:15 09/08/20 06:15 Additional Labs: Accuchecks 09/10/20 09/09/20 11:54 19:15 POC Glucose 157 H 221 H Microbiology 09/04/20 16:42 Venous blood - Right Arm Blood Culture - Preliminary Specimen has been received and culture in progress. No Growth to date. 09/04/20 16:42 Venous blood - Right Arm Blood Culture - Preliminary NO GROWTH AT 48 HOURS 09/04/20 16:42 Venous blood - Left Hand Blood Culture - Preliminary Specimen has been received and culture in progress. No Growth to date. 09/04/20 16:42 Venous blood - Left Hand Blood Culture - Preliminary NO GROWTH AT 48 HOURS Laboratory Tests 09/04/20 09/04/20 09/04/20 16:42 16:42 16:42 WBC Neutrophils % Neutrophils % (Manual) Band Neuts % (Manual) D-Dimer Hemoglobin A1c Lactic Acid 4.3 H* Ferritin C-Reactive Protein 11.79 H B-Natriuretic Peptide 18.9 Influenza A RNA INAAT Influenza B RNA INAAT SARS-CoV-2 Rap RNA(RT-PCR) 09/04/20 09/04/20 09/04/20 16:42 16:42 16:42 WBC 10.9 H Neutrophils % 89.9 H Neutrophils % (Manual) Band Neuts % (Manual) D-Dimer 0.43 Hemoglobin A1c Lactic Acid Ferritin 450.02 H C-Reactive Protein B-Natriuretic Peptide Influenza A RNA INAAT Influenza B RNA INAAT SARS-CoV-2 Rap RNA(RT-PCR) 09/04/20 09/04/20 09/04/20 16:42 17:57 19:50 WBC Neutrophils % Neutrophils % (Manual) Band Neuts % (Manual) D-Dimer Hemoglobin A1c 6.5 H Lactic Acid 3.3 H Ferritin C-Reactive Protein B-Natriuretic Peptide Influenza A RNA INAAT Not Detected Influenza B RNA INAAT Not Detected SARS-CoV-2 Rap RNA(RT-PCR) DETECTED A* 09/05/20 09/05/20 09/06/20 06:03 06:03 05:57 WBC Neutrophils % Neutrophils % (Manual) 71 Band Neuts % (Manual) 15 H D-Dimer Hemoglobin A1c Lactic Acid 2.4 H Ferritin 297.52 H C-Reactive Protein B-Natriuretic Peptide Influenza A RNA INAAT Influenza B RNA INAAT SARS-CoV-2 Rap RNA(RT-PCR) 09/06/20 09/08/20 05:57 06:15 WBC Neutrophils % Neutrophils % (Manual) Band Neuts % (Manual) D-Dimer Hemoglobin A1c Lactic Acid Ferritin 200.16 C-Reactive Protein 6.56 H B-Natriuretic Peptide Influenza A RNA INAAT Influenza B RNA INAAT SARS-CoV-2 Rap RNA(RT-PCR) Hospitalist ROS - Medication Medications: Active Medications Generic Name Dose Route Start Last Admin Trade Name Freq PRN Reason Stop Dose Admin Acetaminophen 650 mg 09/04/20 18:32 09/08/20 08:03 Acetaminophen 325 Mg Tab PO 650 mg Q4H PRN Administration Headache/Fever/Mild Pain (1-3) Albuterol Sulfate 2 puff 09/08/20 18:30 09/10/20 17:43 Proventil Inhaler 6.7 G (200 Inhalations) INH 2 puff [id number] IZA Administration Ascorbic Acid 1,000 mg 09/05/20 09:00 09/10/20 08:10 Ascorbic Acid 500 Mg Chewable Tablet PO 1,000 mg DAILY IZA Administration Dexamethasone 6 mg 09/05/20 08:00 09/10/20 08:10 Dexamethasone 4 Mg Tab PO 6 mg QAM-WM IZA Administration Enoxaparin Sodium 40 mg 09/06/20 21:00 09/10/20 08:10 Enoxaparin Sodium 40 Mg/0.4 Ml Syringe SC 40 mg 0900,2100 IZA Administration Guaifenesin 600 mg 09/08/20 18:00 09/10/20 16:25 Guaifenesin Er 600 Mg Tab PO 600 mg 0600,1800 IZA Administration Guaifenesin/Dextromethorphan 15 ml 09/04/20 18:32 09/09/20 16:27 Guaifenesin Dm 100-10/5 Ml Udcup PO 15 ml Q4H PRN Administration Cough Ceftriaxone Sodium 1 gm/ 100 mls @ 200 mls/hr 09/05/20 18:00 09/10/20 16:24 Sodium Chloride IVPB 100 mls Q24HR IZA Administration Azithromycin 500 mg/ Sodium 250 mls @ 250 mls/hr 09/05/20 17:00 09/10/20 16:24 Chloride IVPB 250 mls Q24HR IZA Administration Insulin Human Lispro 0 units 09/04/20 18:35 09/10/20 16:25 Humalog 300 Units/3 Ml Vial SC 3 units .MILD SLIDING SCALE PRN Administration Mild Correctional Scale Insulin Human Lispro 0 units 09/04/20 18:35 09/09/20 20:53 Humalog 300 Units/3 Ml Vial SC 2 unit .BEDTIME SLIDING SC PRN Administration Bedtime Correctional Scale Sodium Chloride 10 ml 09/04/20 18:32 09/10/20 08:11 Flush - Normal Saline 10 Ml Syringe IVF 10 ml PRN PRN Administration Saline Flush Zinc Sulfate 220 mg 09/05/20 09:00 09/10/20 08:10 Zinc Sulfate 220 Mg Cap PO 220 mg DAILY IZA Administration - Exam General Appearance: NAD, awake alert Eye: PERRL, anicteric sclera ENT: normocephalic atraumatic, no oropharyngeal lesions Neck: supple, symmetric, no JVD, no thyromegaly, no lymphadenopathy Heart: RRR, no gallops, no rubs, normal peripheral pulses Heart - other findings: S1, S2 Respiratory: no wheezes Respiratory - other findings: few scattered rhonchi Gastrointestinal: soft, non-tender, non-distended, normal bowel sounds, no palpable masses Extremities: no cyanosis, no clubbing, no edema Skin: normal turgor, no lesions Neurological: cranial nerve grossly intact, no new deficit Musculoskeletal: normal tone, normal strength, no muscle wasting Psychiatric: normal affect, A&O x 3 Hosp A/P (1) Pneumonia due to COVID-19 virus Code(s): U07.1 - COVID-19; J12.82 - PNEUMONIA DUE TO CORONAVIRUS DISEASE 2019 Status: Acute Plan: Continue Rocephin/Zithromax/Dexamethasone/Lovenox/Vit C/Zinc (2) Acute respiratory failure with hypoxia Code(s): J96.01 - ACUTE RESPIRATORY FAILURE WITH HYPOXIA Status: Acute Plan: Continue O2 supplementation, assess for home O2 (3) Hypokalemia Code(s): E87.6 - HYPOKALEMIA Status: Acute (4) Sepsis Code(s): A41.9 - SEPSIS, UNSPECIFIED ORGANISM Status: Acute (5) DM II (diabetes mellitus, type II), controlled Code(s): E11.9 - TYPE 2 DIABETES MELLITUS WITHOUT COMPLICATIONS Status: Chronic - Plan plan discussed w/ family, continue antibiotics, social welfare administrator, respiratory therapy, out of bed/ambulate, DVT proph w/SCDs Stable currently Completed Remdesivir Continue Dexamethasone/Rocephin/Zithromax Continue Lovenox 40mg sc BID Add Albuterol MDI 2 puffs Q4h Add Mucinex 600mg BID Assess for home O2 Isolation protocol Likely home in 24-48h
[2020-09-11] MEDS: PROVENTIL INHALER 6.7 G (200 INHALATIONS) INH SCH ×6 (02:22→20:22)
[2020-09-11] MEDS: guaiFENesin ER 600 MG TAB PO SCH ×2 (06:04→17:14)
[2020-09-11] MEDS: Acetaminophen 325 MG TAB PO PRN (06:19)
[2020-09-11] MEDS: Zinc Sulfate 220 MG CAP PO SCH (08:21)
[2020-09-11] MEDS: Dexamethasone 4 MG TAB PO SCH (08:21)
[2020-09-11] MEDS: Ascorbic Acid 500 mg Chewable Tablet PO SCH (08:21)
[2020-09-11] MEDS: Enoxaparin Sodium 40 MG/0.4 ML SYRINGE SC SCH ×2 (08:21→20:21)
--- NOTE | 2020-09-11 10:05 | EKG ---
Test Reason : Blood Pressure : / mmHG Vent. Rate : 108 BPM Atrial Rate : 108 BPM P-R Int : 134 ms QRS Dur : 074 ms QT Int : 328 ms P-R-T Axes : 023 -26 031 degrees QTc Int : 439 ms Sinus tachycardia Otherwise normal ECG Confirmed by LANETTE HICKMAN, VIRA Tyson ([id number]), editorial clerk FADI PRATHER ([id number]) on 09/11/2020 10:05:44 AM Referred By: Confirmed By:VIRA GAMA MD
[2020-09-11] MEDS: HumaLOG 300 UNITS/3 ML VIAL SC PRN ×3 (12:50→20:25)
--- NOTE | 2020-09-11 13:16 | PDOC.HOSPP ---
- Subjective Encounter Date: 09/11/20 Subjective: The patient is saturating well on nasal cannula. No new events overnight. - Objective Vital Signs & Weight: Vital Signs (12 hours) Temp Pulse Resp BP Pulse Ox 09/11/20 08:20 97 09/11/20 07:28 98.0 F 65 20 116/65 97 Weight Weight 262 lb 9.129 oz I&O: 09/10/20 09/11/20 09/12/20 06:59 06:59 06:59 Intake Total 500 Balance 500 Result Diagrams: 09/08/20 06:15 09/08/20 06:15 Additional Labs: Accuchecks 09/11/20 09/11/20 09/10/20 11:43 06:00 19:16 POC Glucose 166 H 120 H 214 H Hospitalist ROS - Medication Medications: Active Medications Generic Name Dose Route Start Last Admin Trade Name Freq PRN Reason Stop Dose Admin Acetaminophen 650 mg 09/04/20 18:32 09/11/20 06:19 Acetaminophen 325 Mg Tab PO 650 mg Q4H PRN Administration Headache/Fever/Mild Pain (1-3) Albuterol Sulfate 2 puff 09/08/20 18:30 09/11/20 06:04 Proventil Inhaler 6.7 G (200 Inhalations) INH 2 puff [id number] IZA Administration Ascorbic Acid 1,000 mg 09/05/20 09:00 09/11/20 08:21 Ascorbic Acid 500 Mg Chewable Tablet PO 1,000 mg DAILY IZA Administration Dexamethasone 6 mg 09/05/20 08:00 09/11/20 08:21 Dexamethasone 4 Mg Tab PO 6 mg QAM-WM IZA Administration Enoxaparin Sodium 40 mg 09/06/20 21:00 09/11/20 08:21 Enoxaparin Sodium 40 Mg/0.4 Ml Syringe SC 40 mg 0900,2100 IZA Administration Guaifenesin 600 mg 09/08/20 18:00 09/11/20 06:04 Guaifenesin Er 600 Mg Tab PO 600 mg 0600,1800 IZA Administration Guaifenesin/Dextromethorphan 15 ml 09/04/20 18:32 09/09/20 16:27 Guaifenesin Dm 100-10/5 Ml Udcup PO 15 ml Q4H PRN Administration Cough Ceftriaxone Sodium 1 gm/ 100 mls @ 200 mls/hr 09/05/20 18:00 09/10/20 16:24 Sodium Chloride IVPB 100 mls Q24HR IZA Administration Azithromycin 500 mg/ Sodium 250 mls @ 250 mls/hr 09/05/20 17:00 09/10/20 16:24 Chloride IVPB 250 mls Q24HR IZA Administration Insulin Human Lispro 0 units 09/04/20 18:35 09/11/20 12:50 Humalog 300 Units/3 Ml Vial SC 2 units .MILD SLIDING SCALE PRN Administration Mild Correctional Scale Insulin Human Lispro 0 units 09/04/20 18:35 09/10/20 21:05 Humalog 300 Units/3 Ml Vial SC 2 unit .BEDTIME SLIDING SC PRN Administration Bedtime Correctional Scale Sodium Chloride 10 ml 09/04/20 18:32 09/10/20 08:11 Flush - Normal Saline 10 Ml Syringe IVF 10 ml PRN PRN Administration Saline Flush Zinc Sulfate 220 mg 09/05/20 09:00 09/11/20 08:21 Zinc Sulfate 220 Mg Cap PO 220 mg DAILY IZA Administration - Exam General Appearance: awake alert ENT: normocephalic atraumatic Neck: supple, no JVD Heart: RRR Respiratory: normal chest expansion, no tachypnea Gastrointestinal: soft Extremities: no cyanosis, no edema Hosp A/P (1) Acute respiratory failure with hypoxia Code(s): J96.01 - ACUTE RESPIRATORY FAILURE WITH HYPOXIA Status: Acute (2) Pneumonia due to COVID-19 virus Code(s): U07.1 - COVID-19; J12.82 - PNEUMONIA DUE TO CORONAVIRUS DISEASE 2019 Status: Acute (3) Sepsis Code(s): A41.9 - SEPSIS, UNSPECIFIED ORGANISM Status: Acute (4) DM II (diabetes mellitus, type II), controlled Code(s): E11.9 - TYPE 2 DIABETES MELLITUS WITHOUT COMPLICATIONS Status: Chronic - Plan The patient is clinically improving. She required 2 L of oxygen. Symptoms are better. Continue dexamethasone. She completed a course of remdesivir. Hopefully she can be discharged in the next 48 hours.
[2020-09-11] MEDS: cefTRIAXone\\ROCEPHIN 1 GM in Sodium Chloride 0.9% 100 ML IVPB SCH (17:11)
[2020-09-11] MEDS: Azithromycin 500 MG in Sodium Chloride 0.9% 250 ML 250 ML IVPB SCH (17:12)
[2020-09-12] MEDS: PROVENTIL INHALER 6.7 G (200 INHALATIONS) INH SCH ×3 (02:00→10:30)
[2020-09-12] MEDS: guaiFENesin ER 600 MG TAB PO SCH (05:32)
[2020-09-12] MEDS: Dexamethasone 4 MG TAB PO SCH (08:30)
[2020-09-12] MEDS: Enoxaparin Sodium 40 MG/0.4 ML SYRINGE SC SCH (08:31)
[2020-09-12] MEDS: Ascorbic Acid 500 mg Chewable Tablet PO SCH (08:31)
[2020-09-12] MEDS: Zinc Sulfate 220 MG CAP PO SCH (08:31)
[2020-09-12] MEDS: HumaLOG 300 UNITS/3 ML VIAL SC PRN (12:05)
--- NOTE | 2020-09-12 12:24 | PDOC.DS.DS ---
Provider - Provider Date of Admission: 09/04/20 18:05 Date of Discharge: 09/12/20 Admitting Provider: Rae Marshall MD Primary Care Physician: NO PCP PROVIDER Course - Hospital Course Hospital Course: The patient is a 55-year-old female with past medical history of hypertension and diabetes mellitus who was admitted to the hospital for acute respiratory failure with hypoxia related to COVID-19 infection. The patient was managed for 8 days with dexamethasone, supplemental oxygen, and completed a course of remdesivir. We were able to wean her off to room air and discharge her in a stable condition. Resuscitation Status: 09/04/20 18:32 Resuscitation Status Routine Co-Sign Provider: Resuscitation Status: FULL: Full Resuscitation - Labs Lab Results: 09/08/20 06:15 09/08/20 06:15 Microbiology - Entire Visit 09/04/20 16:42 Venous blood - Left Hand Blood Culture - Final NO GROWTH IN 5 DAYS 09/04/20 16:42 Venous blood - Right Arm Blood Culture - Final NO GROWTH IN 5 DAYS - Physical Exam Vitals: Vital Signs (12 hours) Temp Pulse Resp BP Pulse Ox 09/12/20 10:30 20 93 L 09/12/20 08:39 97 09/12/20 08:06 98.0 F 64 20 121/73 97 Weight Weight 262 lb 9.129 oz Physical Exam: The patient was seen and examined on the day of discharge. Problem - Problem (1) Acute respiratory failure with hypoxia Code(s): J96.01 - ACUTE RESPIRATORY FAILURE WITH HYPOXIA Status: Acute (2) Pneumonia due to COVID-19 virus Code(s): U07.1 - COVID-19; J12.82 - PNEUMONIA DUE TO CORONAVIRUS DISEASE 2019 Status: Acute (3) Sepsis Code(s): A41.9 - SEPSIS, UNSPECIFIED ORGANISM Status: Acute (4) DM II (diabetes mellitus, type II), controlled Code(s): E11.9 - TYPE 2 DIABETES MELLITUS WITHOUT COMPLICATIONS Status: Chronic Plan - Discharge Medications Home Medications: Medication Instructions Recorded Confirmed Type Metoprolol Tartrate 50 mg PO DAILY 09/11/20 09/11/20 History Telmisartan/Hydrochlorothiazid 1 tablet PO DAILY 09/11/20 09/11/20 History [Telmisartan-Hctz 80-12.5 mg Tb] Allergies: No Known Drug Allergies Allergy (Verified 09/04/20 20:27) - Follow up Plan Referrals: PROVIDER,NO PCP [Primary Care Provider] - Disposition: HOME Quality - Care Measures CORE MEASURES:: N/A
[2020-09-12 14:26] VITALS: BP 135/80; TEMP 98.3
== END 2020-09-12 14:51 | disposition home or self-care (01) | DRG 871 ==
LOC: ERS 16:03 → T4-A 18:05
PROVIDERS: ADMIT Internal Medicine; ATTEND Internal Medicine
PROC: XW033E5 Introduction of Remdesivir Anti-infective into Peripheral Vein, Percutaneous Approach, New Technology Group 5 (ICD-10-PCS; principal; 2020-09-04)
PROC: 8E0ZXY6 Isolation (ICD-10-PCS; 2020-09-04)
DX: A41.89 Other specified sepsis (principal); U07.1 COVID-19; J96.01 Acute respiratory failure with hypoxia; J12.82 Pneumonia due to coronavirus disease 2019; E11.65 Type 2 diabetes mellitus with hyperglycemia; I10 Essential (primary) hypertension; E87.6 Hypokalemia; Z23 Encounter for immunization; Z79.899 Other long term (current) drug therapy
CPT/HCPCS: 0240U; 36415; 36416; 71045; 71275; 80048; 80053; 82728; 83036; 83605; 83690; 83880; 84450; 84460; 85007; 85025; 85027; 85379; 85610; 85652; 85730; 86140; 87040; 90471; 90662; 90670; 93005; 94760; 96365; 96367; 96375; G0008; G0009; J0456; J0696; J1650; J3490; J7050; J8540; Q9967